=== PATIENT | female | born 1975 | race Caucasian/White ===

== ENCOUNTER 2021-09-13 17:25 | Outpatient (CLI) | payer OTHER, SELFPAY ==
--- NOTE | ~2021-09-13 | MM_ITS ---
EXAMINATION: MM screening katya BI w dany HISTORY: Screening mammogram TECHNIQUE: Craniocaudal and mediolateral oblique 3-D tomosynthesis images were obtained and synthetic 2-D images were generated. CAD analysis was submitted and interpreted. COMPARISON: 10/04/2018 bilateral screening mammogram BREAST PARENCHYMAL COMPOSITION: The breasts are almost entirely fatty. FINDINGS: Right breast: There is a suspicious new approximately 5 mm ill-defined irregular density in the upper outer quadrant of the right breast. Diagnostic right mammogram and, if confirmed, right br east ultrasound examination are recommended Left breast: There is no evidence of suspicious mass, calcification, or architectural distortion to s uggest malignancy in either breast. There has been no suspicious interval change. IMPRESSION: 1. Suspicious new 5 mm irregular ill-defined density, upper outer quadrant of right breast 2. Diagnostic right mammogram and, if appropriate, right breast ultrasound BI-RADS Category 0: Incomplete: Needs additional imaging evaluation. Reviewed, dictated and finalized at location A. T MATE IMPRESSION: 1. Suspicious new 5 mm irregular ill-defined density, upper outer quadrant of r ight breast 2. Diagnostic right mammogram and, if appropriate, right breast ultrasound BI-RADS Category 0: Incomplete: Needs additional imaging evaluation.
== END 2021-09-13 17:26 | disposition home or self-care (01) ==
LOC: ANHIMG 17:26
PROVIDERS: PCP Family Medicine; Visit Provider Obstetrics & Gynecology
DX: Z12.31 Encounter for screening mammogram for malignant neoplasm of breast (principal); R92.8 Other abnormal and inconclusive findings on diagnostic imaging of breast
CPT/HCPCS: 77063; 77067

== ENCOUNTER 2021-09-28 12:41 | Outpatient (CLI) | payer OTHER, SELFPAY ==
--- NOTE | ~2021-09-28 | MMUS_ITS ---
EXAMINATION: MM diagnostic katya RT w dany, US breast RT limited HISTORY: Follow-up left breast asymmetry TECHNIQUE: Additional 3-D tomosynthesis images of the right breast were performed and synthetic 2-D i mages were generated. CAD analysis was submitted and interpreted. High resolution Limited right breas t ultrasound was performed. COMPARISON: 09/13/2021 BREAST PARENCHYMAL COMPOSITION: Breast composition is almost entirely fatty FINDINGS: MAMMOGRAPHIC FINDINGS: There is a persistent asymmetry laterally in the right breast on CC view, although less dense with sp ot compression views and not definitely identified on medial lateral or MLO views. ULTRASOUND: Limited right breast ultrasound: At 11:00, 1 cm from the nipple there is a 3 mm cyst. At 11:00, 1 cm from the nipple there is a 2 mm cyst. At 11:00, 4 cm from the nipple, there is an irregular shaped hy poechoic mass measuring 7 x 6 mm with antiparallel configuration and posterior shadowing as well as i nternal vascularity. IMPRESSION: 1. Irregular shaped hypoechoic mass of the right breast at 11:00, 4 cm from the nipple measuring up t o 7 mm. 2. Ultrasound-guided right breast biopsy recommended. BI-RADS category 4, suspicious findings. Reviewed, dictated and finalized at location A. LEAD APPLICATION TESTING IMPRESSION: 1. Irregular shaped hypoechoic mass of the right breast at 11:00, 4 cm from the nipple measuring up to 7 mm. 2. Ultrasound-guided right breast biopsy recommended. BI-RADS category 4, suspicious findings.
== END 2021-09-28 12:42 | disposition home or self-care (01) ==
LOC: ANHIMG 12:44
PROVIDERS: PCP Family Medicine; Visit Provider Obstetrics & Gynecology
DX: R92.8 Other abnormal and inconclusive findings on diagnostic imaging of breast (principal)
CPT/HCPCS: 76642; 77061; 77065; G0279

== ENCOUNTER 2024-01-08 07:49 | Outpatient (CLI) | payer OTHER, SELFPAY ==
--- NOTE | ~2024-01-08 | MM_ITS ---
EXAMINATION: MM screening katya BI w dany HISTORY: Screening TECHNIQUE: Craniocaudal and mediolateral oblique 3-D tomosynthesis images were obtained and synthetic 2-D images were generated. CAD analysis was submitted and interpreted. COMPARISON: Comparison to multiple prior studies sequentially, with oldest reviewed study dated 10/04. BREAST PARENCHYMAL COMPOSITION: The breasts are almost entirely fatty. FINDINGS: There is no evidence of suspicious mass, calcification, or architectural distortion to sugg est malignancy in either breast. There has been no suspicious interval change. IMPRESSION: 1. No mammographic evidence of malignancy. 2. Recommend routine screening mammography in one year. BI-RADS Category 1: Negative Reviewed, dictated and finalized at location B.
== END 2024-01-08 07:50 | disposition home or self-care (01) ==
LOC: ANHIMG 07:52
PROVIDERS: PCP Family Medicine; Visit Provider Obstetrics & Gynecology
DX: Z12.31 Encounter for screening mammogram for malignant neoplasm of breast (principal)
CPT/HCPCS: 77063; 77067

== ENCOUNTER 2025-04-03 14:30 | Outpatient (CLI) | payer OTHER, SELFPAY ==
--- OUTSIDE RECORDS SUMMARY | 2018-10-04 | XMS_ITS | Encounter Summary ---
Author Organization [facility] Healthcare Address [address] [place] [address] Care Team Providers Care Emergency Services Dispatcher Name Role Phone Mariel Edmonds Primary Care Provider Unavaila ble Reason for Visit * Diagnostic Imaging (Routine) - Closed Specialty Diagnoses / Procedures Referred By Contac t Referred To Contact Procedures Breast Imaging Screening Outside Reference Smita Monahan MD PhD [address] [phone] [place] [address] Phone: tel: fax: Referral ID Status Reason Start Date Expiration Date Visits Re quested Visits Authorized [id number] Closed 11/10/2021 12/10/2022 1 1 Encounter Details Date Type Department Care Team (Late st Contact Info) Description 10/04/2018 Hospital Encounter [facility] [address] [place] [address] [id number] Social History Tobacco Use Types Packs/Day Years Used Date Smoking Tobacco: Never Smokeless Tobacco: Never AUDIT-C Answer Date Recorded Q1: How often do you have a drink containing alc ohol? 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 Gender Identity Female 11/15/2021 8:59 AM CDT Sexual Orientation Not on file documented as of this encounter Functional Status documented as of this encounter Plan of Treatment Upcoming Encounters Date Type Department Care Team (Late st Contact Info) Description 07/10/2025 8:30 AM SALES SERVICE PROFESSIONAL Hospital Encounter [facility] [address] [place] [address] Christopher Allison MD [address] [facility] [place] [address] 07/10/2025 8:30 AM SALES SERVICE PROFESSIONAL - 07/10/2025 9:00 AM SALES SERVICE PROFESSIONAL Surgery [facility] [address] [place] [address] Christopher Allison MD [address] [facility] [address] [place] [address] COLONOSCOPY Scheduled Procedures Name Priority Associated Diagnoses Date/Ti me COLONOSCOPY Encounter for screening colonoscopy 07/10/2025 8:30 AM SALES SERVICE PROFESSIONAL documented as of this encounter Procedures Procedure Name Priority Date/Time Associated Diagnosis Comments BREAST IMAGING MG SCREENING OUTSIDE REFERENCE Routine 10/04/2018 12:00 AM CDT documented in this encounter Results * Breast Imaging Screening Outside Reference (10/04/2018 12:00 AM CDT) Impressions [facility]_M[facility]MO[facility] - 11/10/2021 4:21 PM CDT These images are for Reference purposes only and have not been reviewed by [facility]. There will be no report generated by a [facility] Radiologist. Narrative [facility]MAMMO[facility] - 11/10/2021 4:21 PM CDT EXAMINATION: Images For Reference Purposes Only us Smita Monahan MD PhD IMG MAMMO PROCEDURES Final Result [facility] documented in this encounter Visit Diagnoses Not on filedocumented in this encounter Care Teams Emergency Services Dispatcher Relationship Specialty Start Date End Date Mariel Edmonds PCP - General 07/29/08 09/28/21 documented as of this encounter
--- NOTE | ~2025-04-03 | MM_ITS ---
EXAMINATION: MM screening katya BI w dany HISTORY: Screening TECHNIQUE: Craniocaudal and mediolateral oblique 3-D tomosynthesis images were obtained and synthetic 2-D images were generated. CAD analysis was submitted and interpreted. COMPARISON: 09/13/2021 BREAST PARENCHYMAL COMPOSITION: Not Dense: The breasts are almost entirely fatty. FINDINGS: There is no evidence of suspicious mass, calcification, or architectural distortion to suggest malignancy. There has been no suspicious interval change. IMPRESSION: 1. No mammographic evidence of malignancy. Recommend routine screening mammography in one year. BI-RADS Category 2: Benign finding(s) Reviewed, dictated and finalized at location Q. IMPRESSION: 1. No mammographic evidence of malignancy. Recommend routine screening mammogra phy in one year. BI-RADS Category 2: Benign finding(s)
--- OUTSIDE RECORDS SUMMARY | 2025-04-03 15:11 | XMS_ITS | Clinical Summary ---
Author Organization [facility] Address [facility] [place] [address] Care Team Providers Care Facilities Supervisor Name Role Phone Trino Molina MD Primary Care Provider [phone] Allergies No known active allergies Medications No known medications Active Problems Problem Noted Date Diagnosed Date Colon cancer screening 10/28/2024 Assessment & Plan (10/28/2024 7:25 AM CDT): Referral to GI for c-scope. Agreeable to schedule. Class 3 severe obesity due t o excess calories with serious comorbidity and body mass index (BMI) of 40.0 to 44.9 in adult 10/28/2024 Assessment & Plan (10/28/2024 7:25 AM CDT): Encourage heart healthy diet and exercise. Encounter for screening colonoscopy 10/28/2024 Left foot pain 05/12/2024 Assessment & Plan (05/12/2024 8:24 AM CDT): X-ray ordered. Will message with results once received. Recommend orthotics for high arches. Can also use Voltaren p.r.n.. Weight loss can also be beneficial. If worsening or not improving recommend following up with Podiatry. She is in agreement with plan and states understanding. Class 3 severe obesity due t o excess calories with serious comorbidity and body mass index (BMI) of 45.0 to 49.9 in adult 05/12/2024 Assessment & Plan (05/12/2024 8:24 AM CDT): Weight loss would be beneficial for foot pain and overall health. Annual physical exam 10/04/2023 Assessment & Plan (10/28/2024 7:33 AM CDT): In regard to health maintenance, Colonoscopy- referral to GI for colonoscopy Mammogram stays utd with breast specialist WWE stays utd with POOL TABLE OPERATOR- Dr Pantoja. Will have screening labs completed today. Eat a healthy diet: focus on lean meats and proteins, more fruits, vegetables and whole grains and low in sugars and fats. Limit red meat and avoid processed meat. Maintain a healthy weight; avoid being overweight. Aim for a normal body mass index (BMI) of 18.5-24.9. Help learning to eat healthier, we can set up appointment with curtain cutter/shearing machine feeder. Have an active lifestyle, strive for 30 minutes of moderate exercise 5 times a week and strength or resistance training at least twice a week. Use broad-spectrum (UVA+UVB) sunscreen with SPF 30 or greater, is water resistant, limit time spent in the sun (10 am-4pm), wear hat, wear UV protective clothing, wear sunglasses. Never use a tanning bed. Skin that was irradiated may be more sensitive over your lifetime. Do not smoke or chew tobacco; participate in a smoking cessation program. Limit alcohol intake, 1 drink per day for a woman and 2 drinks per day for a man. Assessment & Plan (10/04/2023 3:03 PM CDT): In regard to health maintenance, Colonoscopy scheduled- ordered through POOL TABLE OPERATOR Mammogram stays utd with POOL TABLE OPERATOR WWE stays utd with POOL TABLE OPERATOR ASCVD risk: 0.7% Eat a healthy diet: focus on lean meats and proteins, more fruits, vegetables and whole grains and low in sugars and fats. Limit red meat and avoid processed meat. Maintain a healthy weight; avoid being overweight. Aim for a normal body mass index (BMI) of 18.5-24.9. Help learning to eat healthier, we can set up appointment with curtain cutter/shearing machine feeder. Have an active lifestyle, strive for 30 minutes of moderate exercise 5 times a week and strength or resistance training at least twice a week. Use broad-spectrum (UVA+UVB) sunscreen with SPF 30 or greater, is water resistant, limit time spent in the sun (10 am-4pm), wear hat, wear UV protective clothing, wear sunglasses. Never use a tanning bed. Skin that was irradiated may be more sensitive over your lifetime. Do not smoke or chew tobacco; participate in a smoking cessation program. Limit alcohol intake, 1 drink per day for a woman and 2 drinks per day for a man. History of bleeding ulcers 07/05/2022 Immunizations Immunization Administration Dates Next Due Influenza, Quadrivalent, Rut l Culture-based MDCK, Preservative Free, Antibiotic Free, Intramuscular 07/01/2023 Influenza, Quadrivalent, Spl it, Preservative Free, Intramuscular 04/08/2023,07/05/2022,06/04/2021 Influenza, Trivalent, Preser vative Free, Intramuscular 05/12/2024,08/12/2013 Surgical History Surgery Date Site/Laterality Comments CHOLECYSTECTOMY 07/23/2008 - 07/22/2009 BREAST BIOPSY 12/01/2021 Right Medical History Medical History Date Comments Obese Peptic ulceration GERD (gastroesophageal reflux disease) 1999 Family History Medical History Relation Name Comments No Known Problems Father Depression Mother Margarita Diabetes Mother Margarita Hearing loss Mother Margarita Hypertension Mother Margarita Relation Name Status Comments Father Mother Margarita Social History Tobacco Use Types Packs/Day Years [...] on file Legal 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 Gender Identity Female 11/15/2021 8:59 AM CDT Sexual Orientation Not on file Obstetrics History Last Filed Vital Signs Vital Sign Reading Time Taken Comments Blood Pressure 108/76 10/28/2024 6:49 AM CDT Pulse 90 10/28/2024 6:49 AM CDT Temperature 36.4 C (97.6 F) 10/28/2024 6:49 AM CDT Respiratory Rate 18 10/28/2024 6:49 AM CDT Oxygen Saturation 98% 10/28/2024 6:49 AM CDT Inhaled Oxygen Concentration - - Weight 109.9 kg (242 lb 3.2 oz) 10/28/2024 6:49 AM CDT Height 157.2 cm (5' 1.89) 10/28/2024 6:49 AM CD T Body Mass Index 44.46 10/28/2024 6:49 AM CDT Plan of Treatment Upcoming Encounters Date Type Department Care Team (Late st Contact Info) Description 07/10/2025 8:30 AM SUPERVISOR [employer]ING [employer] ASSEMBLY Hospital Encounter [facility] [address] [place] [address] Christopher Allison MD [address] [facility] [address] [place] [address] 07/10/2025 8:30 AM SUPERVISOR [employer]ING AND ASSEMBLY - 07/10/2025 9:00 AM SUPERVISOR [employer]ING [employer] ASSEMBLY Surgery [address] [address] Christopher Allison MD [address] [facility] [address] [place] [address] COLONOSCOPY Scheduled Procedures Name Priority Associated Diagnoses Date/Ti me COLONOSCOPY Encounter for screening colonoscopy 07/10/2025 8:30 AM SUPERVISOR [employer]ING [employer] Health Maintenance Due Date Last Done Comments Breast Cancer Screening-Mammogram 1977 Cervical Cancer Screening 1977 Colon Cancer Screening-Colonoscopy 1977 Hepatitis C Screening 1977 DTaP/Tdap/Td Vaccine (1 - Tdap) 1988 Hepatitis B Screening 12/05/1995 Covid-19 Vaccine ( season) 2024 07/01/2023, 06/04/2021, 10/02/2020, Additional history exists Influenza Vaccine (#1) 2025 , 07/01/2023, 04/08/2023, Additional history exists Depression Screening 10/28/2025 10/28/2024, 05/12/2024, 10/04/2023, Additional history exists Regular Well Visit/Exam 18-64 10/28/2025 10/28/2024, 10/04/2023 Pneumococcal vaccine <65 Aged Out No longer eligible based on patient's age to complete this topic Insurance [facility] [employer] [place], [place] [facility] Care Teams Facilities Supervisor Relationship Specialty Start Date End Date Trino Molina MD [address] [place] [address] PCP - General Family Medicine 07/05/22
== END 2025-04-03 14:31 | disposition home or self-care (01) ==
LOC: ANHFOHIMG 14:31
PROVIDERS: Visit Provider Obstetrics & Gynecology
DX: Z12.31 Encounter for screening mammogram for malignant neoplasm of breast (principal)
CPT/HCPCS: 77063; 77067